=== PATIENT | female | born 1995 | race Caucasian/White ===

== ENCOUNTER 2017-08-20 13:57 | Emergency (ER) | payer OTHER ==
[2016-03-21 17:47] VITALS: BP 117/50
[~2017-08-20 13:57] MED LIST: CHOL500016 PO; CLON1TAB3 PO; DULO20CA PO; ETON1VAG VG; OMEP20CA9 PO; TRAM50TA PO
== END 2017-08-20 14:05 | disposition left against medical advice (07) ==
LOC: ER 13:57
DX: Z53.21 Procedure and treatment not carried out due to patient leaving prior to being seen by health care provider (principal)